=== PATIENT | female | born 1980 | race Caucasian/White ===

== ENCOUNTER 2016-03-16 08:23 | Emergency (ER) | payer SELFPAY ==
[2016-03-16] MEDS ORDERED: IBUPROFEN 600 MG TAB PO PRN (08:36)
[2016-03-16] MEDS ORDERED: SODIUM CHLORIDE 0.9% 1000ML 1,000 ML IVS ONE (08:36)
--- NOTE | 2016-03-16 08:43 | ED.PDOC ---
History of Present Illness - General Chief Complaint: Fever Time Seen by Provider: 03/16/16 08:28 - History of Present Illness Initial Comments: Acute onset of chills and fever and cough. 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 Timing/Duration: 1 hour Severity: moderate Improving Factors: nothing Worsening Factors: nothing Associated Symptoms: cough, fever/chills Allergies/Adverse Reactions: Allergies Sulfa Antibiotics Allergy (Unknown, Verified 03/16/16 08:34) Home Medications: Ambulatory Orders Insulin Lispro (Human) [Humalog] 03/16/16 Review of Systems - Review of Systems Constitutional: States: chills, fever, malaise, weakness EENTM: States: throat pain Respiratory: States: cough Cardiology: States: no symptoms reported Gastrointestinal/Abdominal: States: no symptoms reported Genitourinary: States: no symptoms reported Musculoskeletal: States: muscle pain Skin: States: no symptoms reported Neurological: States: no symptoms reported Endocrine: States: no symptoms reported Hematologic/Lymphatic: States: no symptoms reported Past Medical History (General) - Patient Medical History Hx Seizures: No Hx Stroke: No Hx Dementia: No Hx Asthma: No Hx of COPD: No Hx Cardiac Disorders: No Hx Congestive Heart Failure: No Hx Pacemaker: No Hx Hypertension: No Hx Thyroid Disease: No Hx Diabetes: Yes Hx Gastroesophageal Reflux: No Hx Renal Disease: No Hx Cancer: No Hx of HIV: No Hx Hepatitis C: No Hx MRSA: No Surgical History: appendectomy, tonsillectomy - Vaccination History Hx Tetanus, Diphtheria Vaccination: No Hx Influenza Vaccination: No Hx Pneumococcal Vaccination: No Immunizations Up to Date: No - Social History Hx Tobacco Use: Yes Hx Chewing Tobacco Use: No Hx Alcohol Use: Yes Hx Substance Use: No Hx Substance Use Treatment: No Hx Depression: No Feels Threatened In Home Enviroment: No Feels Threatened In a Relationship: No Hx Physical Abuse: No Hx Emotional Abuse: No Hx Suspected Abuse: No Family Medical History - Family History Mother Family History: Unknown Living Status: Physical Exam - Physical Exam General Appearance: Anxious, Ill Appearing, Well Developed, Well Groomed, Well Nourished Eye Exam: bilateral normal Ears, Nose, Throat: other - red pharynx no exudate Neck: full range of motion, supple Respiratory: chest non-tender, lungs clear, normal breath sounds, no respiratory distress Cardiovascular/Chest: no JVD, no murmur, tachycardia Gastrointestinal/Abdominal: normal bowel sounds, non tender, soft, no organomegaly, no pulsatile mass Extremity: normal range of motion Neurologic: erp analyst II-XII nml as tested, no motor/sensory deficits, alert, normal mood/affect, oriented x 3 Skin Exam: normal color Progress - EKG/XRAY/CT CT Ordered: No CT Interpretation Call Back: No Departure - Departure Disposition: Discharge to Home or Self Care Departure Forms: ED Discharge - Pt. Copy, Patient Portal Self Enrollment Home Medications: Ambulatory Orders Insulin Lispro (Human) [Humalog] 03/16/16
[2016-03-16] MEDS ORDERED: IBUPROFEN 200 MG TAB PO ONE (08:45)
--- NOTE | 2016-03-16 09:46 | RAD ---
EXAM DESCRIPTION: XR CHEST 1 VIEW CLINICAL HISTORY: fever and cough COMPARISON: None available TECHNIQUE: AP portable chest FINDINGS: The lungs are clear. There is no infiltrate or effusion. The heart is normal size. IMPRESSION: Normal portable chest Electronically signed by: Prakash Madison MD 03/16/2016 09:44
[2016-03-16] MEDS ORDERED: ACETAMINOPHEN 500 MG TAB PO ONE (10:14)
[2016-03-16] MEDS ORDERED: ONDANSETRON INJ 4 MG/2 ML VIAL IV ONE (10:26)
[2016-03-16] MEDS ORDERED: MORPHINE SULFATE INJ 10 MG/ML VIAL IV ONE (10:26)
[2016-03-16] MEDS ORDERED: cefTRIAXone SODIUM 1 GM in SODIUM CHL 0.9% 50ML MIN-BAG+ 50 ML IVPB ONE (10:26)
[2016-03-16] MEDS ORDERED: cefTRIAXone SODIUM 1 GM VIAL ONE (10:29)
[2016-03-16] MEDS ORDERED: SODIUM CHL 0.9% 50ML MIN-BAG+ 50 ML IVPB ONE (10:30)
[2016-03-16 11:21] VITALS: BP 111/77; TEMP 98.9; O2SAT 95
== END 2016-03-16 11:15 | disposition home or self-care (01) ==
LOC: ER 08:23
DX: J20.8 Acute bronchitis due to other specified organisms (principal); E11.9 Type 2 diabetes mellitus without complications; R50.81 Fever presenting with conditions classified elsewhere; R51 Headache; M79.1 Myalgia; Z87.891 Personal history of nicotine dependence; Z88.2 Allergy status to sulfonamides; Z79.4 Long term (current) use of insulin
CPT/HCPCS: 71010; 80053; 81001; 85025; 87040; 87070; 87086; 87088; 87186; 87804; 87880; J0696; J2270; J2405; J7030; J7050

== ENCOUNTER 2017-11-11 14:52 | Emergency (ER) | payer OTHER ==
[2017-11-11] MEDS ORDERED: ADENOSINE INJ 6 MG/2 ML SYG IV ONE ×3 (15:03→15:43)
--- NOTE | 2017-11-11 15:47 | ED.PDOC ---
History of Present Illness - General Chief Complaint: Cardiovascular Problem Stated Complaint: PALPITATIONS Time Seen by Provider: 11/11/17 15:41 Source: patient, RN notes reviewed - History of Present Illness Initial Comments: ACUTE ONSET OF PALPITATIONS AND CHEST PAIN. WAS SEEN AT HER WORK AND NOTED THAT HER BP WAS LOS (89 SYSTOLIC). SHE HAS DIABETES. Timing/Duration: 1 hour Severity: moderate Location: substernal Activities at Onset: other - AT WORK Prior Chest Pain/Cardiac Workup: no prior chest pain Improving Factors: nothing Worsening Factors: nothing Allergies/Adverse Reactions: Allergies Sulfa Antibiotics Allergy (Unknown, Verified 11/11/17 15:44) Home Medications: Ambulatory Orders Insulin Aspart [Novolog] 0 unit SC QID PRN 11/11/17 Insulin Glargine [Lantus Solostar] 20 unit SC BEDTIME 11/11/17 Lisinopril 5 mg PO DAILY 11/11/17 Metformin HCl 500 mg PO BID 11/11/17 Review of Systems - Review of Systems Constitutional: States: malaise EENTM: States: no symptoms reported Respiratory: States: short of breath Cardiology: States: chest pain, palpitations Gastrointestinal/Abdominal: States: no symptoms reported Genitourinary: States: no symptoms reported Musculoskeletal: States: no symptoms reported Neurological: States: no symptoms reported Endocrine: States: no symptoms reported Hematologic/Lymphatic: States: no symptoms reported All other Systems: Reviewed and Negative Past Medical History (General) - Patient Medical History Hx Seizures: No Hx Stroke: No Hx Dementia: No Hx Asthma: No Hx of COPD: No Hx Cardiac Disorders: No Hx Congestive Heart Failure: No Hx Pacemaker: No Hx Hypertension: No Hx Thyroid Disease: No Hx Diabetes: Yes Hx Gastroesophageal Reflux: No Hx Renal Disease: No Hx Cancer: No Hx of HIV: No Hx Hepatitis C: No Hx MRSA: No - Vaccination History Hx Tetanus, Diphtheria Vaccination: No Hx Influenza Vaccination: No Hx Pneumococcal Vaccination: No - Social History Hx Tobacco Use: Yes Hx Chewing Tobacco Use: No Hx Alcohol Use: Yes Hx Substance Use: No Hx Substance Use Treatment: No Hx Depression: No Hx Physical Abuse: No Hx Emotional Abuse: No Hx Suspected Abuse: No Family Medical History - Family History Mother Family History: Unknown Living Status: Physical Exam - Physical Exam General Appearance: Alert, Ill Appearing, Well Developed, Well Groomed, Well Hydrated Eyes, Ears, Nose, Throat Exam: PERRL/EOMI, normal ENT inspection, TMs normal, pharynx normal Neck: non-tender, full range of motion, supple Respiratory: chest non-tender, lungs clear, normal breath sounds, no respiratory distress, no accessory muscle use Cardiovascular/Chest: normal peripheral pulses, no murmur, tachycardia Peripheral Pulses: radial,right: 2+, radial,left: 2+ Gastrointestinal/Abdominal: normal bowel sounds, non tender, soft, no organomegaly, no pulsatile mass Rectal Exam: deferred Extremity: normal range of motion, non-tender, normal inspection Neurologic: alert, normal mood/affect, oriented x 3 Skin Exam: normal color Lymphatic: no adenopathy Progress - Progress Progress: 11/11/17 15:50 INITIAL HEART RATE OF 222. AFTER 6 MG ADENOSINE THE HR IS NOW 125. 11/11/17 17:44 FEELS MUCH BETTER - Results/Orders Results/Orders: EKG NO 1: HR OF 222, QRS OF 70, QTC OG 376, AXIS OF 63 DEGREES. IMPRESSION: SVT NO TRACING ARE AVAILABLE TO COMPARE. EKG NO 2: HR OF 119, HI INTERVAL OF 126, QRS OF 72, QTC OF 452, AXIS OF 75 DEGREES. IMPRESSION: SINUS TACHYCARDIA. TRACING IS COMPARED TO ONE DONE 40 MINUTES EARLIER. SVT HAS SUBSIDED. TSH IS NORMAL Departure - Departure Clinical Impression: Supraventricular tachycardia Time of Disposition: 17:45 Disposition: Discharge to Home or Self Care Condition: Good Departure Forms: ED Discharge - Pt. Copy, Patient Portal Self Enrollment Instructions: DI for Chest Pain Diet: resume usual diet Activity: increase activity as tolerated Referrals: Freddy Voss MD [Primary Care Provider] - 1-2 Weeks Home Medications: Ambulatory Orders Insulin Aspart [Novolog] 0 unit SC QID PRN 11/11/17 Insulin Glargine [Lantus Solostar] 20 unit SC BEDTIME 11/11/17 Lisinopril 5 mg PO DAILY 11/11/17 Metformin HCl 500 mg PO BID 11/11/17 Additional Instructions: STOP SMOKING Comments: FOLLOW UP WITH DR. CURRY
[2017-11-11 17:49] VITALS: O2SAT 100
[2017-11-11 18:10] VITALS: BP 131/86
[2017-11-11 18:14] VITALS: TEMP 98.1
== END 2017-11-11 18:13 | disposition home or self-care (01) ==
LOC: ER 14:52
DX: I47.1 Supraventricular tachycardia (principal); E11.9 Type 2 diabetes mellitus without complications; Z79.84 Long term (current) use of oral hypoglycemic drugs; Z79.899 Other long term (current) drug therapy; Z87.891 Personal history of nicotine dependence
CPT/HCPCS: 36415; 80053; 84443; 84484; 85025; 93005; J0153

== ENCOUNTER → 2018-01-01 | Outpatient (CLI) | payer OTHER | LOC: LAB.O 08:41 | PROVIDERS: ATTEND General Practice | DX: Z13.220 Encounter for screening for lipoid disorders (principal); R79.89 Other specified abnormal findings of blood chemistry; R73.09 Other abnormal glucose ==

== ENCOUNTER 2018-08-23 10:29 | Emergency (ER) | payer OTHER ==
[2018-08-23] MEDS ORDERED: SODIUM CHLORIDE 0.9% 1000ML 1,000 ML IVS PRN (10:54)
[2018-08-23] MEDS ORDERED: SODIUM CHLORIDE 0.9% (FLUSH) 10 ML SYG IV PRN (10:54)
[2018-08-23] MEDS ORDERED: ONDANSETRON INJ 4 MG/2 ML VIAL IV ONE (10:54)
--- NOTE | 2018-08-23 11:11 | RAD ---
EXAM DESCRIPTION: Chest,1 View CLINICAL HISTORY: 37 years Female, SOB COMPARISON: March 16, 2016 TECHNIQUE: AP portable chest. FINDINGS: Lungs are clear. No consolidation. Heart normal size. IMPRESSION: Normal. Electronically signed by: Carmelo Santoro MD 08/23/2018 11:09 AM CDT
[2018-08-23] MEDS ORDERED: SODIUM CHL 0.9% 250ML (AVIVA) 250 ML IVPB ONE (11:55)
[2018-08-23] MEDS ORDERED: INSULIN, REG.(HUMAN) 100 U/ML VIAL ONE (11:56)
[2018-08-23] MEDS ORDERED: INSULIN, REG.(HUMAN) 250 UNITS in SODIUM CHL 0.9% 250ML (AVIVA) 247.5 ML IVPB SCH ×2 (12:00)
--- NOTE | 2018-08-23 12:03 | ED.PDOC ---
History of Present Illness - General Chief Complaint: GI Problem Stated Complaint: vomiting,vaginal bleeding Time Seen by Provider: 08/23/18 10:40 Source: patient Exam Limitations: no limitations - History of Present Illness Initial Comments: PT PRESENTS WITH COMPLAINT OF NAUSEA, VOMITING, ELEVATED GLUCOSE LEVELS AND HEMATURIA X 2-3 DAYS. PT HAS A HISTORY OF IDDM AND REPORTS BEING OUT OF HER LONG ACTING INSULIN FOR THE PAST FEW WEEKS. PT REPORTS GLUCOSE LEVELS AT HOME HAVE BEEN IN THE 400S. Timing/Duration: getting worse Severity: moderate, severe Improving Factors: nothing Worsening Factors: nothing Associated Symptoms: nausea/vomiting, shortness of breath, weakness Allergies/Adverse Reactions: Allergies Sulfa Antibiotics Allergy (Unknown, Verified 11/11/17 15:44) Home Medications: Ambulatory Orders Insulin Aspart [Novolog] 0 unit SC QID PRN 11/11/17 Insulin Glargine [Lantus Solostar] 20 unit SC BEDTIME 11/11/17 Lisinopril 5 mg PO DAILY 11/11/17 Metformin HCl [Metformin Hydrochloride] 500 mg PO BID 11/11/17 Buspirone HCl 10 mg PO TID 08/23/18 Gabapentin 300 mg PO BID 08/23/18 Tramadol HCl 50 mg PO BID 08/23/18 Review of Systems - Review of Systems Constitutional: Denies: chills, fever EENTM: Denies: nose congestion, throat pain Respiratory: States: short of breath. Denies: cough Cardiology: States: chest pain. Denies: palpitations Gastrointestinal/Abdominal: States: nausea, vomiting. Denies: abdominal pain Genitourinary: States: hematuria. Denies: dysuria, frequency Musculoskeletal: Denies: joint pain, joint swelling Skin: Denies: dryness, rash Neurological: Denies: headache, numbness Endocrine: States: no symptoms reported Hematologic/Lymphatic: States: no symptoms reported Past Medical History (General) - Patient Medical History Hx Seizures: No Hx Stroke: No Hx Dementia: No Hx Asthma: No Hx of COPD: No Hx Cardiac Disorders: No Hx Congestive Heart Failure: No Hx Pacemaker: No Hx Hypertension: No Hx Thyroid Disease: No Hx Diabetes: Yes Hx Gastroesophageal Reflux: No Hx Renal Disease: No Hx Cancer: No Hx of HIV: No Hx Hepatitis C: No Hx MRSA: No Surgical History: appendectomy, tonsillectomy - Vaccination History Hx Tetanus, Diphtheria Vaccination: No Hx Influenza Vaccination: Yes Hx Pneumococcal Vaccination: No - Social History Hx Tobacco Use: Yes Hx Chewing Tobacco Use: No Hx Alcohol Use: Yes Hx Substance Use: No Hx Substance Use Treatment: No Hx Depression: No Hx Physical Abuse: No Hx Emotional Abuse: No Hx Suspected Abuse: No - Female History Patient is a Female of Child Bearing Age (10 -59 yrs old): Yes Family Medical History - Family History Mother Family History: Unknown Living Status: Physical Exam - Physical Exam General Appearance: Alert, Obvious distress, Well Groomed Eye Exam: bilateral normal Ears, Nose, Throat: hearing grossly normal Neck: full range of motion, supple Respiratory: lungs clear, normal breath sounds, other - TACHYPNEIC Cardiovascular/Chest: no murmur, tachycardia Gastrointestinal/Abdominal: non tender, soft Back Exam: no CVA tenderness Extremity: non-tender, normal inspection, no pedal edema Neurologic: alert, normal mood/affect, oriented x 3 Skin Exam: normal color, warm/dry Progress - Progress Progress: 08/23/18 12:05 PT REPORTS SOME IMPROVEMENT IN SYMPTOMS AFTER IV ZOFRAN. LABS AND DIAGNOSTICS DISCUSSED. PLAN TO TRANSFER TO [facility] 08/23/18 12:28 PT CONTINUES TO COMPLAIN OF NAUSEA/VOMITING, AND CHRONIC BACK PAIN. PHENERGAN AND MORPHINE ORDERED - Results/Orders Results/Orders: Laboratory Tests 08/23/18 08/23/18 08/23/18 11:15 11:15 11:15 WBC 17.5 H RBC 5.08 Hgb 14.3 Hct 45.8 MCV 90.2 MCH 28.2 MCHC 31.3 L RDW 15.7 H Plt Count 638 H MPV 9.0 Absolute Neuts (auto) 14.80 H Absolute Lymphs (auto) 1.80 Absolute Monos (auto) 0.70 Absolute Eos (auto) 0.10 Absolute Basos (auto) 0.00 Neutrophils % 85.0 H Lymphocytes % 10.3 L Monocytes % 4.2 Eosinophils % 0.3 L Basophils % 0.2 Sodium 131 L Potassium 5.4 H Chloride 100 L Carbon Dioxide < 7 L* Anion Gap 29.4 H BUN 13 Creatinine 1.20 BUN/Creatinine Ratio 10.8 POC Glucose > 400 H* Random Glucose 654 H* Serum Osmolality 294.3 Calcium 8.7 Total Bilirubin 1.8 H AST 59 H ALT 47 Alkaline Phosphatase 103 Serum Total Protein 8.0 Albumin 4.3 Globulin 3.7 H Albumin/Globulin Ratio 1.2 Serum HCG, Qual Urine Color Urine Appearance Urine pH Ur Specific [place] Urine Protein Urine Glucose (UA) Urine Ketones Urine Blood Urine Nitrite Urine Bilirubin Urine Urobilinogen Ur Leukocyte Esterase Urine RBC Urine WBC Ur Epithelial Cells Amorphous Sediment Urine Bacteria Serum Ketones Small 08/23/18 08/23/18 08/23/18 11:15 11:33 11:45 WBC RBC Hgb Hct MCV MCH MCHC RDW Plt Count MPV Absolute Neuts (auto) Absolute Lymphs (auto) Absolute Monos (auto) Absolute Eos (auto) Absolute Basos (auto) Neutrophils % Lymphocytes % Monocytes % Eosinophils % Basophils % Sodium Potassium Chloride Carbon Dioxide Anion Gap BUN Creatinine BUN/Creatinine Ratio POC Glucose Random Glucose Cancelled Serum Osmolality Calcium Total Bilirubin AST ALT Alkaline Phosphatase Serum Total Protein Albumin Globulin Albumin/Globulin Ratio Serum HCG, Qual Negative Urine Color Zoie H Urine Appearance Cloudy Urine pH 5.0 Ur Specific [place] 1.025 Urine Protein 100 H Urine Glucose (UA) 500 H Urine Ketones >=160 Urine Blood Large H Urine Nitrite Negative Urine Bilirubin Small H Urine Urobilinogen 0.2 Ur Leukocyte Esterase Negative Urine RBC Tntc H Urine WBC 0 Ur Epithelial Cells 0-1 Amorphous Sediment Trace Urine Bacteria 0 Serum Ketones - EKG/XRAY/CT EKG: Sinus, Tachy - @128BPM, NL INTERVALS, NL AXIS, no ST T wave changes, Unchanged from - 11/11/2017 Departure - Departure Clinical Impression: DKA (diabetic ketoacidosis), Hematuria Time of Disposition: 12:01 Disposition: Transfer to Hospital Condition: Poor Departure Forms: ED Discharge - Pt. Copy, Patient Portal Self Enrollment Referrals: Freddy Voss MD [Primary Care Provider] - 1-2 Weeks Home Medications: Ambulatory Orders Insulin Aspart [Novolog] 0 unit SC QID PRN 11/11/17 Insulin Glargine [Lantus Solostar] 20 unit SC BEDTIME 11/11/17 Lisinopril 5 mg PO DAILY 11/11/17 Metformin HCl [Metformin Hydrochloride] 500 mg PO BID 11/11/17 Buspirone HCl 10 mg PO TID 08/23/18 Gabapentin 300 mg PO BID 08/23/18 Tramadol HCl 50 mg PO BID 08/23/18 Critical Care Note - Critical Care Note Total Time (mins): 50 Comments: CRITICAL EVENT: DKA, TACHYCARDIA, HYPERGLYCEMIA, NAUSEA/VOMITING CRITICAL FINDINGS: GLU: 654, CO2<7, PH: 7.07 CRITICAL ACTIONS: IV NS X 2L, IV INSULIN INFUSION, IV ANTIEMETICS, IV PAIN MEDICATIONS, TRANSFER TO HIGHER LEVEL OF CARE, CONSULTATION WITH HOSPITALIST. Transfer to Outside Facility - Transfer Information Accepting Provider:: DR. WATTERS Accepting Facility: [facility] Reason for Transfer: specialized care not available
[2018-08-23] MEDS ORDERED: PROMETHAZINE HCL INJ 25 MG in SODIUM CHLORIDE 0.9% 50ML 50 ML IVPB ONE (12:28)
[2018-08-23] MEDS ORDERED: MORPHINE SULFATE INJ 10 MG/ML VIAL IV ONE (12:28)
[2018-08-23] MEDS ORDERED: PROMETHAZINE HCL INJ 25 MG/ML VIAL IM ONE (12:41)
[2018-08-23] MEDS ORDERED: SODIUM CHLORIDE 0.9% 1000ML 1,000 ML IVS ONE (12:44)
[2018-08-23 12:50] VITALS: BP 152/96; TEMP 98; O2SAT 96
== END 2018-08-23 13:04 | disposition short-term general hospital (02) ==
LOC: ER 10:29
DX: E11.10 Type 2 diabetes mellitus with ketoacidosis without coma (principal); R31.9 Hematuria, unspecified; R00.0 Tachycardia, unspecified; R11.2 Nausea with vomiting, unspecified; M54.9 Dorsalgia, unspecified; G89.29 Other chronic pain; Z79.4 Long term (current) use of insulin; Z87.891 Personal history of nicotine dependence; Z79.899 Other long term (current) drug therapy; Z88.2 Allergy status to sulfonamides
CPT/HCPCS: 36415; 36416; 36600; 71045; 80053; 81001; 82009; 82803; 82805; 82948; 84703; 85025; 93005; J2270; J2405; J2550; J7030

== ENCOUNTER 2019-09-24 17:44 | Emergency (ER) | payer OTHER ==
[2019-09-24] MEDS ORDERED: SODIUM CHLORIDE 0.9% (FLUSH) 10 ML SYG IV PRN (19:13)
--- NOTE | 2019-09-24 19:14 | ED.PDOC ---
History of Present Illness - General Time Seen by Provider: 09/24/19 19:12 Source: patient - History of Present Illness Initial Comments: 38-year-old female with PMH of hypertension, type 2 diabetes who presents with CC of diarrhea and fevers. Onset of illness yesterday morning with gradual worsening. Reports primary symptoms of intermittent fever with T-max 101.2 F at home yesterday afternoon as well as intermittent watery diarrhea, reports a total of about 8 episodes since yesterday evening. Reported some brief right- sided abdominal pain earlier today but has now been resolved. Also reports intermittent nonproductive cough, mild sore throat, mild headache. States also her blood sugar checks have been more elevated than usual, the last few have been over 300. Reports compliance with her usual insulin regimen. Reported some nausea earlier but no emesis. Just finished her period yesterday. Denies any chest pain, dyspnea, urinary symptoms. Her has also recently been ill with upper respiratory symptoms. She works at [employer] but no known recent sick contacts or COVID contacts there. Allergies/Adverse Reactions: Allergies Sulfa Antibiotics Allergy (Unknown, Verified 11/11/17 15:44) Home Medications: Ambulatory Orders Insulin Aspart [Novolog] 0 unit SC QID PRN 11/11/17 Insulin Glargine [Lantus Solostar] 20 unit SC BEDTIME 11/11/17 Lisinopril 5 mg PO DAILY 11/11/17 Metformin HCl [Metformin Hydrochloride] 500 mg PO BID 11/11/17 Buspirone HCl 10 mg PO TID 08/23/18 Gabapentin 300 mg PO BID 08/23/18 Tramadol HCl 50 mg PO BID 08/23/18 Review of Systems - Review of Systems Review of Systems: 09/24/19 19:29 As per HPI All other Systems: Reviewed and Negative Past Medical History (General) - Patient Medical History Hx Seizures: No Hx Stroke: No Hx Dementia: No Hx Asthma: No Hx of COPD: No Hx Cardiac Disorders: No Hx Congestive Heart Failure: No Hx Pacemaker: No Hx Hypertension: No Hx Thyroid Disease: No Hx Diabetes: Yes Hx Gastroesophageal Reflux: No Hx Renal Disease: No Hx Cancer: No Hx of HIV: No Hx Hepatitis C: No Hx MRSA: No - Vaccination History Hx Tetanus, Diphtheria Vaccination: No Hx Influenza Vaccination: Yes Hx Pneumococcal Vaccination: No - Social History Hx Tobacco Use: Yes Hx Chewing Tobacco Use: No Hx Alcohol Use: Yes Hx Substance Use: No Hx Substance Use Treatment: No Hx Depression: No Hx Physical Abuse: No Hx Emotional Abuse: No Hx Suspected Abuse: No Family Medical History - Family History Mother Family History: Unknown Living Status: Physical Exam - Physical Exam General Appearance: Alert, Comfortable, No apparent distress Eye Exam: bilateral normal Ears, Nose, Throat: hearing grossly normal, normal ENT inspection, normal pharynx Neck: non-tender, full range of motion, supple, normal inspection Respiratory: lungs clear, normal breath sounds, no respiratory distress, no accessory muscle use Cardiovascular/Chest: normal peripheral pulses, no edema, no gallop, no JVD, no murmur, tachycardia Peripheral Pulses: radial,right: 2+, radial,left: 2+ Gastrointestinal/Abdominal: non tender, soft, no organomegaly Back Exam: normal inspection, no CVA tenderness, no vertebral tenderness Extremity: normal range of motion, non-tender, normal inspection, no pedal edema, no calf tenderness, normal capillary refill Neurologic: wort extractor II-XII nml as tested, no motor/sensory deficits, alert, normal mood/affect, oriented x 3 Skin Exam: normal color, warm/dry Progress - Progress Progress: 09/24/19 19:30 Diarrhea, fevers -Consider gastroenteritis/colitis, diverticulitis, other viral infection, COVID, strep, UTI, pneumonia, hyperglycemia, metabolic derangement, foodborne illness, food allergies, other -Obtain blood work, UA, COVID panel, strep -Given fever and tachycardia, also obtain lactic acid level and blood cultures, Place PIV, 1 L normal saline bolus 09/24/19 21:32 -Patient remained stable, tachycardia improving with IV fluids -Chest x-ray is clear. Her labs reveal serum WBC 12,000 with slight left shift and no bands. Remainder of lab work-up is pretty unremarkable thus far. Strep negative. We are still awaiting her respiratory panel results. 09/25/19 00:27 -Patient is negative for COVID-19. Discussed diagnosis of acute viral gastroenteritis as well as continued supportive care at home. She was discharged to home in good condition. Return warnings discussed. Advised close PCP follow-up and to continue to monitor blood glucose levels closely while she is ill. Dominguez Evangelista MD Billing #[id number] 09/24/19 19:13 IV Care:Saline Lock per Protoc QSHIFT 09/24/19 20:00 BLOOD CULTURE Stat 09/24/19 20:40 STREP A SCREEN CULTURE Stat Laboratory Results - last 24 hr 09/24/19 09/24/19 09/24/19 20:00 20:00 20:00 WBC 12.2 H RBC 4.16 L Hgb 12.3 Hct 36.7 MCV 88.2 MCH 29.5 MCHC 33.5 RDW 14.3 Plt Count 304 MPV 9.1 Absolute Neuts (auto) 9.50 H Absolute Lymphs (auto) 1.60 Absolute Monos (auto) 0.90 H Absolute Eos (auto) 0.20 Absolute Basos (auto) 0.00 Neutrophils % 78.2 H Lymphocytes % 12.9 L Monocytes % 7.5 Eosinophils % 1.2 Basophils % 0.2 Sodium 132 L Potassium 3.9 Chloride 99 L Carbon Dioxide 22 Anion Gap 14.9 BUN 12 Creatinine 0.75 BUN/Creatinine Ratio 16.0 Random Glucose 296 H Serum Osmolality 275.3 Lactic Acid Calcium 8.5 Total Bilirubin 0.6 Direct Bilirubin 0.1 Indirect Bilirubin 0.5 AST 19 ALT 17 Alkaline Phosphatase 84 Serum Total Protein 6.7 Albumin 3.7 Amylase 16 L Lipase 19 L Serum HCG, Qual Negative Group A Strep Rapid 09/24/19 09/24/19 20:00 20:40 WBC RBC Hgb Hct MCV MCH MCHC RDW Plt Count MPV Absolute Neuts (auto) Absolute Lymphs (auto) Absolute Monos (auto) Absolute Eos (auto) Absolute Basos (auto) Neutrophils % Lymphocytes % Monocytes % Eosinophils % Basophils % Sodium Potassium Chloride Carbon Dioxide Anion Gap BUN Creatinine BUN/Creatinine Ratio Random Glucose Serum Osmolality Lactic Acid 1.3 Calcium Total Bilirubin Direct Bilirubin Indirect Bilirubin AST ALT Alkaline Phosphatase Serum Total Protein Albumin Amylase Lipase Serum HCG, Qual Group A Strep Rapid Negative - EKG/XRAY/CT XRAY: chest - No acute processes per my read Departure - Departure Clinical Impression: Gastroenteritis and colitis, viral, Hyperglycemia Time of Disposition: 22:28 Disposition: Discharge to Home or Self Care Condition: Fair Departure Forms: ED Discharge - Pt. Copy, Patient Portal Self Enrollment Instructions: Viral Gastroenteritis, Adult (DC) Diet: diabetic diet Activity: increase activity as tolerated Referrals: Freddy Voss MD [Primary Care Provider] - 1-2 Weeks Home Medications: Ambulatory Orders Insulin Aspart [Novolog] 0 unit SC QID PRN 11/11/17 Insulin Glargine [Lantus Solostar] 20 unit SC BEDTIME 11/11/17 Lisinopril 5 mg PO DAILY 11/11/17 Metformin HCl [Metformin Hydrochloride] 500 mg PO BID 11/11/17 Buspirone HCl 10 mg PO TID 08/23/18 Gabapentin 300 mg PO BID 08/23/18 Tramadol HCl 50 mg PO BID 08/23/18 Additional Instructions: Remain well-hydrated and gradually advance your diet and activity level as tolerated. You may take the Zofran tablet every 8 hours as needed for nausea. Return to the ED if you develop any concerning symptoms such as worsening abdominal pain, intractable nausea and vomiting, blood in the vomit or stool, concern for dehydration such as lack of urination for more than 8 hours, sustained glucose level greater than 400 despite home interventions, etc. Follow-up with your primary care physician for repeat evaluation is recommended in the next 3 to 5 days or sooner as needed. Continue to monitor your blood sugar levels closely at home and continue your sliding scale insulin as directed.
[2019-09-24] MEDS ORDERED: SODIUM CHLORIDE 0.9% 1000ML 1,000 ML IVS ONE (19:25)
[2019-09-24 19:28] VITALS: O2SAT 99
--- NOTE | 2019-09-24 20:10 | RAD ---
EXAM: XR Chest, 1 View CLINICAL HISTORY: The patient is 38 years old and is Female; cough, fever TECHNIQUE: Single upright portable view of the chest. COMPARISON: August 23, 2018. FINDINGS: Lungs: Unremarkable. No consolidation. Pleural space: Unremarkable. No pneumothorax. Heart: Unremarkable. No cardiomegaly. Mediastinum: Unremarkable. Bones/joints: No acute fracture. Mild scoliosis versus positioning artifact. Upper abdomen: No free air in the visualized upper abdomen. IMPRESSION: No acute cardiopulmonary process identified. Electronically signed by: Holly Spring MD 09/24/2019 8:09 PM CDT
[2019-09-24] MEDS ORDERED: AZITHROMYCIN 250 MG TAB PO ONE (22:26)
[2019-09-24] MEDS ORDERED: ONDANSETRON ODT (ER DISP) 8 MG TAB PO ONE (22:29)
[2019-09-24 23:06] VITALS: BP 130/86; TEMP 98.8
== END 2019-09-24 23:00 | disposition home or self-care (01) ==
LOC: ER 17:44
DX: A08.4 Viral intestinal infection, unspecified (principal); R19.7 Diarrhea, unspecified; E11.65 Type 2 diabetes mellitus with hyperglycemia; F17.200 Nicotine dependence, unspecified, uncomplicated; Z11.59 Encounter for screening for other viral diseases; Z79.899 Other long term (current) drug therapy; Z79.4 Long term (current) use of insulin
CPT/HCPCS: 36415; 71045; 80048; 80076; 82150; 83605; 83690; 84703; 85025; 87040; 87070; 87635; 87880; J7030